=== PATIENT | male | born 1955 | race Caucasian/White ===

== ENCOUNTER 2018-07-26 05:49 | Outpatient (CLI) | payer BC ==
[~2018-07-26] VITALS: Ht 177.8 cm; Wt 90.7 kg
[2018-07-26] MEDS ORDERED: METF-397 PO (11:32)
[2018-07-26] MEDS ORDERED: ATOR20TA66 PO (11:32)
[2018-07-26] MEDS ORDERED: LISI40TA PO (11:32)
[2018-07-26] MEDS ORDERED: SITA100T12 PO (11:32)
[2018-07-26] MEDS ORDERED: AMLO10TA6 PO (11:32)
[2018-07-26] MEDS ORDERED: OMG1KC PO (11:32)
[2018-07-26] MEDS ORDERED: DIPH25TA31 PO (11:32)
== END 2018-07-26 12:06 | disposition home or self-care (01) ==
LOC: PREOP 05:49
PROVIDERS: ATTEND Specialist
DX: Z01.818 Encounter for other preprocedural examination (principal)

== ENCOUNTER 2018-07-27 05:48 | Day surgery (SDC) | payer BC ==
[~2018-07-27] VITALS: Ht 177.8 cm; Wt 90.7 kg
[~2018-07-27 05:48] MED LIST: AMLO10TA6 PO; ATOR20TA66 PO; DIPH25TA31 PO; LISI40TA PO; METF-397 PO; OMG1KC PO; SITA100T12 PO
[2018-07-27 06:15] VITALS: BP 129/83
[2018-07-27] MEDS ORDERED: LIDOCAINE PF 1% 2 ML AMP IR PRN (06:15)
[2018-07-27] MEDS ORDERED: MOXIFLOXACIN OPHTH SOLN 5 MG/ML 0.3 ML SYRINGE OP ONE (06:15)
[2018-07-27] MEDS ORDERED: POVIDONE (BETADINE) OPHTH SOLN 5% 30 ML OP ONE (06:15)
[2018-07-27] MEDS ORDERED: EPINEPHrine INJECTION 1 MG/ML AMP INJ ONE (06:15)
[2018-07-27] MEDS ORDERED: TIMOLOL MALEATE 0.5% 5 ML (TIMOPTIC) BTL OU PRN (06:15)
[2018-07-27] MEDS: TETRACAINE 0.5% OPHTH SOLN 4 ML BTL (SINGLE DOSE ONLY) OU PRN ×4 (06:23→06:39)
[2018-07-27] MEDS: PHENYLEPHRINE 10% OPHTH (NEO-SYN) 5 ML BTL OU SCH ×3 (06:30→06:39)
[2018-07-27] MEDS: CYCLOPENTOLATE 1% (CYCLOGYL) 2 ML DROPS OP SCH ×3 (06:30→06:39)
[2018-07-27] MEDS ORDERED: MIDAZOLAM 2 MG/2 ML (VERSED) VIAL ONE (06:57)
--- NOTE | 2018-07-27 07:04 | Ophthalmologist Pre-Op Note ---
Pre-Operative Progress Note H&P Reviewed The H&P was reviewed, patient examined and no changes noted. Date H&P Reviewed: Jul 27, 2018 Time H&P Reviewed: 07:04 Pre-Op Dx Cataract, Right Eye NI BAKER MD Jul 27, 2018 07:04
--- NOTE | 2018-07-27 07:30 | Ophthalmology Operative Report ---
Cataract removal/placement IOL PREOPERATIVE DIAGNOSIS: Cataract Right Eye POSTOPERATIVE DIAGNOSIS: Cataract Right Eye PROCEDURE: Cataract removal and placement of posterior chamber implant, right eye SURGEON: Adan Baker ANESTHESIA: Topical with sedation COMPLICATIONS: None ESTIMATED BLOOD LOSS: Minimal DESCRIPTION OF PROCEDURE: After proper informed consent was obtained, the patient, a 62 male, was taken to the Operating Room and the right eye was anesthetized with tetracaine. The right eye was then prepped and draped in the usual manner. A wire lid speculum was placed. A paracentesis was made at the left hand position. Preservative free lidocaine was injected into the anterior chamber followed by viscoelastic. A clear corneal incision was made in the temporal position. A capsulorrhexis was preformed and the central nuclear and cortical material were removed. The posterior capsule was polished and Chandra 9.5 [id number] IOL was placed into the capsular bag. The residual viscoelastic was aspirated and balanced saline solution was injected into the anterior chamber. Moxifloxacin was injected into the anterior chamber. The wound was checked and found to be water tight. The patient tolerated the procedure well without complications. ADAN BAKER MD Jul 27, 2018 07:30
[2018-07-27 07:39] VITALS: BP 113/79
--- NOTE | 2018-07-27 11:04 | Anesthesia-General Post-Op ---
MAC Patient Condition Mental Status/LOC: Same as Preop Cardiovascular: Satisfactory Nausea/Vomiting: Absent Respiratory: Satisfactory Pain: Controlled Complications: Absent Post Op Complications Complications None Follow Up Care/Instructions Patient Instructions None needed. Anesthesiology Discharge Order Discharge Order Patient is doing well, no complaints, stable vital signs, no apparent adverse anesthesia problems. No complications reported per nursing. JANE BAER CRNA Jul 27, 2018 11:04
== END 2018-07-27 07:39 | disposition home or self-care (01) ==
LOC: SDC 05:48
PROVIDERS: ATTEND Specialist
DX: H26.9 Unspecified cataract (principal); E11.36 Type 2 diabetes mellitus with diabetic cataract; I10 Essential (primary) hypertension; E78.00 Pure hypercholesterolemia, unspecified; E78.5 Hyperlipidemia, unspecified; F17.210 Nicotine dependence, cigarettes, uncomplicated; Z79.84 Long term (current) use of oral hypoglycemic drugs; Z79.899 Other long term (current) drug therapy
CPT/HCPCS: 82962

== ENCOUNTER 2018-08-10 06:50 | Outpatient (CLI) | payer BC | END 2018-08-10 14:04 | disposition home or self-care (01) | LOC: PREOP 06:50 | PROVIDERS: ATTEND Specialist | DX: Z01.818 Encounter for other preprocedural examination (principal) ==

== ENCOUNTER 2018-08-12 09:12 | Day surgery (SDC) | payer BC ==
[~2018-08-12] VITALS: Ht 177.8 cm; Wt 90.7 kg
[2018-08-12] MEDS: TETRACAINE 0.5% OPHTH SOLN 4 ML BTL (SINGLE DOSE ONLY) OU PRN ×4 (09:28→09:48)
[2018-08-12] MEDS ORDERED: LIDOCAINE PF 1% 2 ML AMP IR PRN (09:30)
[2018-08-12] MEDS ORDERED: MOXIFLOXACIN OPHTH SOLN 5 MG/ML 0.3 ML SYRINGE OP ONE (09:30)
[2018-08-12] MEDS ORDERED: acetaZOLAMIDE ER 500 MG CAP (DIAMOX SEQUELS) PO ONE (09:30)
[2018-08-12] MEDS ORDERED: POVIDONE (BETADINE) OPHTH SOLN 5% 30 ML OP ONE (09:30)
[2018-08-12] MEDS ORDERED: BSS 15 ML IR PRN (09:30)
[2018-08-12] MEDS ORDERED: TIMOLOL MALEATE 0.5% 5 ML (TIMOPTIC) BTL OU PRN (09:30)
[2018-08-12] MEDS ORDERED: EPINEPHrine INJECTION 1 MG/ML AMP INJ ONE (09:30)
[2018-08-12 09:31] VITALS: BP 116/73
--- NOTE | 2018-08-12 09:35 | Ophthalmologist Pre-Op Note ---
Pre-Operative Progress Note H&P Reviewed The H&P was reviewed, patient examined and no changes noted. Date H&P Reviewed: Aug 12, 2018 Time H&P Reviewed: 09:35 Pre-Op Dx Cataract, Left Eye NI BAKER MD Aug 12, 2018 09:35
[2018-08-12] MEDS: PHENYLEPHRINE 10% OPHTH (NEO-SYN) 5 ML BTL OU SCH ×3 (09:39→09:48)
[2018-08-12] MEDS: CYCLOPENTOLATE 1% (CYCLOGYL) 2 ML DROPS OP SCH ×3 (09:39→09:48)
[2018-08-12] MEDS ORDERED: MIDAZOLAM 2 MG/2 ML (VERSED) VIAL ONE (09:56)
--- NOTE | 2018-08-12 10:18 | Ophthalmology Operative Report ---
Cataract removal/placement IOL PREOPERATIVE DIAGNOSIS: Cataract Left Eye POSTOPERATIVE DIAGNOSIS: Cataract Left Eye PROCEDURE: Cataract removal and placement of posterior chamber implant, left eye SURGEON: Adan Baker ANESTHESIA: Topical with sedation COMPLICATIONS: None ESTIMATED BLOOD LOSS: Minimal DESCRIPTION OF PROCEDURE: After proper informed consent was obtained, the patient, a 63 male, was taken to the Operating Room and the left eye was anesthetized with tetracaine. The left eye was then prepped and draped in the usual manner. A wire lid speculum was placed. A paracentesis was made at the left hand position. Preservative free lidocaine was injected into the anterior chamber followed by viscoelastic. A clear corneal incision was made in the temporal position. A capsulorrhexis was preformed and the central nuclear and cortical material were removed. The posterior capsule was polished and an Chandra 9.5 AU00T0 IOL was placed into the capsular bag. The residual viscoelastic was aspirated and balanced saline solution was injected into the anterior chamber. Moxifloxacin was injected into the anterior chamber. The wound was checked and found to be water tight. The patient tolerated the procedure well without complications. ADAN BAKER MD Aug 12, 2018 10:18
[2018-08-12 10:28] VITALS: BP 116/92
== END 2018-08-12 09:28 | disposition home or self-care (01) ==
LOC: SDC 09:12
PROVIDERS: ATTEND Specialist
DX: H25.12 Age-related nuclear cataract, left eye (principal); E11.36 Type 2 diabetes mellitus with diabetic cataract; I10 Essential (primary) hypertension; F17.210 Nicotine dependence, cigarettes, uncomplicated; Z79.84 Long term (current) use of oral hypoglycemic drugs
CPT/HCPCS: 82962

== ENCOUNTER 2019-05-10 11:35 | Inpatient (IN) | payer BC ==
[~2019-05-10] VITALS: Ht 177.8 cm; Wt 92.1 kg
[~2019-05-10 11:35] MED LIST changes: -AMLO10TA6 PO; +AMLO10TA7 PO
[2019-05-10] MEDS ORDERED: NS IV 1000 ML 1,000 ML IV SCH ×3 (11:43→16:45)
--- NOTE | 2019-05-10 12:13 | ED General ---
General Chief Complaint: General Problems/Pain Stated Complaint: NAUSEA;MUSCLE PAIN;DEHYDRATION Nursing Triage Note: PT AMB TO RM 6 AFTER BEING SENT FROM URGENT CARE. PT STATES WOKE UP THIS MORNING FEELING DIZZY AND WEAK. WENT TO URGENT CARE THIS AM AND HAD ABNORMAL LABS. GIVEN 1L FLUIDS AT Nursing Sepsis Screen: No Definite Risk Source of Information: Patient Exam Limitations: No Limitations History of Present Illness Date Seen by Provider: May 10, 2019 Time Seen by Provider: 11:38 Initial Comments Here with report of weak and dizzy with report from [facility] urgent care that the patient was hypotensive with elevated creatinine and potassium. Also elevated total CK. The provider at urgent care reports that the patient was having shaking chills. This may have started after initiated IV fluids but he has had them persistently since. Does complain of some back and chest discomfort as well as cough. He has had decreased urination. He does work outside in the heat and thinks he may have got overheated yesterday. Denies fevers. Denies d ysuria but is having a hard time going to the bathroom. Denies diarrhea. Labs reviewed from urgent care. Timing/Duration: 4-6 Hours Severity: Moderate Associated Systoms: Cough; No Nausea/Vomiting, No Shortness of Air; Weakness Allergies and Home Medications Allergies Coded Allergies: No Known Drug Allergies (Unverified , 07/26/18) Home Medications Amlodipine Besylate 10 Mg Tablet, 10 MG PO DAILY, (Reported) Atorvastatin Calcium 20 Mg Tablet, 20 MG PO DAILY, (Reported) Diphenhydramine HCl 25 Mg Tablet, 25 MG PO DAILY, (Reported) Lisinopril 40 Mg Tablet, 40 MG PO DAILY, (Reported) Metformin HCl 500 Mg Tablet, 500 MG PO BID, (Reported) [place] 3 Polyunsat Fatty Acids 1,000 Mg Cap, 1,000 MG PO BID, (Reported) Sitagliptin Phosphate 100 Mg Tablet, 100 MG PO DAILY, (Reported) Patient Home Medication List Home Medication List Reviewed: Yes Review of Systems Review of Systems Constitutional: see HPI, chills; No fever; weakness EENTM: No nose congestion, No throat pain Respiratory: cough; No short of breath Cardiovascular: No edema, No palpitations Gastrointestinal: No abdominal pain, No diarrhea, No vomiting Genitourinary: decreased output; No dysuria Musculoskeletal: back pain, muscle pain Skin: No see HPI, No change in color Psychiatric/Neurological: No Symptoms Reported All Other Systems Reviewed Negative Unless Noted: Yes Past Lthwksf-Lllnkz-Fnulzt Hx Patient Social History Alcohol Use: Denies Use Recreational Drug Use: No Smoking Status: Current Everyday Smoker Type Used: Cigarettes Recent Foreign Travel: No Contact w/Someone Who Travel: No Recent Infectious Disease Expo: No Immunizations Up To Date Tetanus Booster (TDap): Unknown PED Vaccines UTD: Yes Past Medical History Surgeries: Yes Abdominal Respiratory: No Cardiac: Yes High Cholesterol, Hypertension Neurological: No Genitourinary: No Gastrointestinal: No Musculoskeletal: No Endocrine: Yes Diabetes, Non-Insulin dep HEENT: No Cancer: No Psychosocial: No Integumentary: No Family Medical History Reviewed Nursing Family Hx No Pertinent Family Hx Physical Exam-Suspected Sepsis Physical Exam Vital Signs Vital Signs - First Documented 05/10/19 11:42 Temp 97.6 Pulse 86 Resp 20 B/P (MAP) 122/75 (91) Pulse Ox 100 O2 Delivery Room Air Capillary Refill : Less Than 3 Seconds Blood Pressure Mean: 91 Height, Weight, BMI Height: 5'1.00" Weight: 203lbs. 0.0oz. 92.379939kr; BMI Method:Stated General Appearance: No Apparent Distress, WD/WN HEENT: PERRL/EOMI, Pharynx Normal Neck: Non Tender, Supple Respiratory: Lungs Clear, Normal Breath Sounds Cardiovascular: Regular Rate, Rhythm, No Murmur Gastrointestinal: Non Tender, Soft Back: Normal Inspection, No CVA Tenderness, No Vertebral Tenderness Extremity: Normal Range of Motion, Non Tender Neurologic/Psychiatric: Alert, Oriented x3 Skin: normal color, warm/dry Focused Exam Lactate Level 05/10/19 11:45: Lactic Acid Level 1.35 Lactic Acid Level Laboratory Tests Test 05/10/19 11:45 Lactic Acid Level 1.35 MMOL/L (0.50-2.00) Progress/Results/Core Measures Suspected Sepsis Recent Fever Within 48 Hours: No Infection Criteria Present: None New/Unexplained Altered Menta: No Sepsis Screen: No Definite Risk SIRS Temperature:97.6 Pulse: 86 Respiratory Rate: 20 Blood Pressure 122 /75 Mean: 91 05/10/19 11:45: Lactic Acid Level 1.35 Laboratory Tests 05/10/19 11:45: Creatinine 3.34H, INR Comment 0.9 Results/Orders Lab Results Laboratory Tests Test 05/10/19 11:45 05/10/19 12:50 Range/Units Prothrombin Time 12.2 12.2-14.7 SEC INR Comment 0.9 0.8-1.4 Activated Partial Thromboplast Time 29 24-35 SEC Sodium Level 138 135-145 MMOL/L Potassium Level 5.2 H 3.6-5.0 MMOL/L Chloride Level 101 98-107 MMOL/L Carbon Dioxide Level 23 21-32 MMOL/L Anion Gap 14 5-14 MMOL/L Blood Urea Nitrogen 49 H 7-18 MG/DL Creatinine 3.34 H 0.60-1.30 MG/DL Estimat Glomerular Filtration Rate 19 BUN/Creatinine Ratio 15 Glucose Level 112 H 70-105 MG/DL Lactic Acid Level 1.35 0.50-2.00 MMOL/L Calcium Level 10.3 H 8.5-10.1 MG/DL Total Creatine Kinase 448 H 30-200 U/L Troponin I < 0.028 <0.028 NG/ML Urine Color YELLOW Urine Clarity CLEAR Urine pH 5 5-9 Urine Specific [place] 1.020 1.016-1.022 Urine Protein 1+ H NEGATIVE Urine Glucose (UA) NEGATIVE NEGATIVE Urine Ketones NEGATIVE NEGATIVE Urine Nitrite NEGATIVE NEGATIVE Urine Bilirubin NEGATIVE NEGATIVE Urine Urobilinogen NORMAL NORMAL MG/DL Urine Leukocyte Esterase 1+ H NEGATIVE Urine RBC (Auto) NEGATIVE NEGATIVE Urine RBC NONE /HPF Urine WBC 5-10 H /HPF Urine Squamous Epithelial Cells RARE /HPF Urine Renal Epithelial Cells NONE /HPF Urine Crystals PRESENT H /LPF Urine Bacteria MODERATE H /HPF Urine Casts PRESENT /LPF Urine Hyaline Casts >50 H /LPF Urine Granular Casts 0-2 H /LPF Urine Mucus N /LPF Urine Culture Indicated YES My Orders Orders - MANDI BOYER MD Blood Culture (05/10/19 11:43) Sputum Culture (05/10/19 11:43) Urinalysis (05/10/19 11:43) Urine Culture (05/10/19 11:43) Protime With Inr (05/10/19 11:43) Partial Thromboplastin Time (05/10/19 11:43) Chest 1 View, Ap/Pa Only (05/10/19 11:43) Ed Iv/Invasive Line Start (05/10/19 11:43) Ed Iv/Invasive Line Start (05/10/19 11:43) Vital Signs Adult Sepsis Patie Q15M (05/10/19 11:43) O2 (05/10/19 11:43) Remove Rings In Anticipation O (05/10/19 11:43) Lactic Acid Analyzer (05/10/19 11:43) Ns Iv 1000 Ml (Sodium Chloride 0.9%) (05/10/19 11:43) Basic Metabolic Panel (05/10/19 11:50) Creatine Kinase (05/10/19 11:50) Troponin I (05/10/19 12:13) Ceftriaxone For Iv Use (Rocephin For I (05/10/19 14:15) Ns Iv 1000 Ml (Sodium Chloride 0.9%) (05/10/19 14:22) Medications Given in ED Current Medications Medications Dose Ordered Sig/Zora Route Start Time Stop Time Status Last Admin Dose Admin Ceftriaxone Sodium 1000 mg/ Sterile Water 10 ml @ 200 mls/hr ONCE ONCE IV 05/10/19 14:15 05/10/19 14:17 DC 05/10/19 14:30 200 MLS/HR Vital Signs/I&O 05/10/19 11:42 Temp 97.6 Pulse 86 Resp 20 B/P (MAP) 122/75 (91) Pulse Ox 100 O2 Delivery Room Air Capillary Refill : Less Than 3 Seconds Blood Pressure Mean: 91 Progress Note : Progress Note Seen and evaluated. IV, labs, UA and chest x-ray ordered. We will use CMP and CBC done earlier today from outpatient clinic. I will go ahead and repeat BMP due to elevated creatinine and hyperkalemia. Repeat normal saline 1 L bolus. Monitor patient. 1506: Labs complete. Does have findings concerning for urinary tract infection and Rocephin 1 g IV was initiated. Blood pressure has improved to greater than 100 systolic after second liter of fluid (1 L at urgent care and 1 L here). He has eaten without difficulty and is overall feeling better. Does have the significant renal dysfunction and this will require admission. I discussed this with the patient who wanted me to talk with his . This is been done and they agree to admission. I discussed the case with Dr. Blackmon and she accepts patient for admission, inpatient status. We'll continue hydration and Rocephin daily. Patient is on meds for for diabetes so we will hold that given his renal dysfunction and initiate sliding scale insulin. Mag lab results for CBC: WBC 11.3, hemoglobin 14.4, platelets 342 with absolute neutrophil count of 7.59. Chemistry results: Sodium 135, potassium 5.7, chloride 97, CO2 26, glucose 139, creatinine 3.4, BUN 50, calcium 10.6, alkaline phosphatase 50, AST 24, ALT 31, T bili 0.9, CPK 443. Estimated GFR 19. Departure Communication (Admissions) Time/Spoke to Admitting Phy: 15:06 Impression Primary Impression: Acute renal failure Qualified Codes: N17.9 - Acute kidney failure, unspecified Additional Impression: Urinary tract infection Qualified Codes: N30.00 - Acute cystitis without hematuria Disposition: ADMITTED INPATIENT Condition: Stable Admissions Decision to Admit Reason: Admit from ER (General) Decision to Admit/Date: May 10, 2019 Time/Decision to Admit Time: 15:06 Departure-Patient Inst. Referrals: NO,LOCAL PHYSICIAN (PCP/Family) Primary Care Physician MANDI BOYER MD May 10, 2019 12:13
--- NOTE | 2019-05-10 12:18 | Diagnostic Imaging Report ---
INDICATION: Near syncope. TIME OF EXAM: 12:06 p.m. COMPARISON: No prior studies are available for comparison. FINDINGS: The heart size is normal. The pulmonary vascularity is unremarkable. The lungs are clear. No infiltrate, effusion or pneumothorax is detected. IMPRESSION: No acute cardiopulmonary process is detected. Dictated by: Dictated on workstation # [id number]
[2019-05-10 12:20] LABS: INR 0.9 (0.8-1.4); PROTHROMBIN TIME PATIENT 12.2 SEC (12.2-14.7)
[2019-05-10 12:24] LABS: CALCIUM 10.3 MG/DL (8.5-10.1); CREATININE SERUM 3.34 MG/DL (0.60-1.30); POTASSIUM 5.2 MMOL/L (3.6-5.0)
[2019-05-10 12:57] LABS: BILIRUBIN,URINE NEGATIVE (NEGATIVE); CLARITY,URINE CLEAR; COLOR,URINE YELLOW; GLUCOSE, URINE (UA) NEGATIVE (NEGATIVE); KETONES,URINE NEGATIVE (NEGATIVE); LEUKOCYTE ESTERASE ,URINE 1+ (NEGATIVE); NITRITE,URINE NEGATIVE (NEGATIVE); PH,URINE 5 (5-9); PROTEIN,URINE 1+ (NEGATIVE); UROBILINOGEN,URINE NORMAL (NORMAL)
[2019-05-10 13:30] LABS: BACTERIA,URINE MODERATE /HPF; GRANULAR CASTS,URINE 0-2 /LPF; HYALINE CASTS, URINE >50 /LPF; SQUAMOUS EPITHELIAL CELL,UR RARE /HPF
[2019-05-10] MEDS ORDERED: cefTRIAXone FOR IV USE 1,000 MG in WATER (STERILE) FOR INJECTION 10 ML IV ONE (14:15)
--- NOTE | 2019-05-10 16:00 | NUR ---
HOANG SIMS admitted to room 405-1, with an admitting diagnosis of UTI AND ARF, on 05/10/19 from ED via W/C, accompanied by FAMILY AND ED STAFF. HOANG SIMS introduced to surroundings, call light, bed controls, phone, TV, temperature control, lights, meal times, smoking policy, visitor policy, side rail policy, bathrooms and showers. Patient Rights given to patient in the handbook. HOANG SIMS verbalizes understanding that [facility] is not responsible for the loss or damage to any personal effects or valuables that are kept in the patients possession during their hospitalization.
[2019-05-10 16:29] VITALS: BP 97/61
[2019-05-10] MEDS ORDERED: CATHETER FLUSH 10 ML SYR IV PRN (16:45)
[2019-05-10 20:29] VITALS: BP 107/61
[2019-05-10] MEDS ORDERED: CALCIUM CARBONATE 500 MG (TUMS) TAB.CHEW PO PRN (20:45)
[2019-05-10] MEDS ORDERED: ACETAMINOPHEN 500 MG TAB (TYLENOL) PO PRN (20:45)
[2019-05-10] MEDS ORDERED: fentaNYL INJECTION 100 MCG/2 ML AMP IVP PRN (20:45)
[2019-05-10] MEDS ORDERED: ONDANSETRON 4 MG (ZOFRAN) ORAL DISSOLVE TAB PO PRN (20:45)
[2019-05-10] MEDS ORDERED: diphenhydrAMINE 25 MG TAB (BENADRYL) PO PRN (20:45)
[2019-05-10] MEDS ORDERED: DOCUSATE SODIUM 100 MG (COLACE) CAP PO PRN (20:45)
[2019-05-10] MEDS ORDERED: HYDROcodone/APAP 5 MG/325 MG (LORTAB) TAB PO PRN (20:45)
[2019-05-10] MEDS ORDERED: MELATONIN 3 MG TABLET PO PRN (20:45)
[2019-05-10] MEDS ORDERED: LOPERAMIDE 2 MG (IMODIUM) TABLET PO PRN (20:45)
[2019-05-10] MEDS ORDERED: ALPRAZolam 0.25 MG (XANAX) TAB PO PRN (20:45)
[2019-05-10] MEDS ORDERED: ONDANSETRON 4 MG/2 ML (SDV) Z0FRAN IVP PRN (20:45)
[2019-05-10] MEDS: SENNA W/DOCUSATE (SENOKOT S) TABLET PO SCH (21:00)
[2019-05-10] MEDS: inSUlin ASPART (NovoLOG) 1 UNIT/0.01 ML (CHARGE PER UNIT) SC SCH (21:38)
[2019-05-11] VITALS: BP 110/66
[2019-05-11 04:00] VITALS: BP 114/70
[2019-05-11] MEDS: inSUlin ASPART (NovoLOG) 1 UNIT/0.01 ML (CHARGE PER UNIT) SC SCH (05:44)
[2019-05-11 06:11] LABS: BASOPHILS % (AUTO) 1 % (0-10); EOSINOPHILS # (AUTO) 0.2 10^3/uL (0.0-0.3); EOSINOPHILS % (AUTO) 3 % (0-10); HEMATOCRIT 35 % (40-54); HEMOGLOBIN 11.5 G/DL (13.3-17.7); LYMPHOCYTES # (AUTO) 1.6 X 10^3 (1.0-4.0); LYMPHOCYTES % (AUTO) 28 % (12-44); MEAN CORPUSCULAR HEMOGLOBIN 30 PG (25-34); MEAN CORPUSCULAR HGB CONC 33 G/DL (32-36); MEAN CORPUSCULAR VOLUME 91 FL (80-99); MEAN PLATELET VOLUME 9.8 FL (7.4-10.4); MONOCYTES # (AUTO) 0.7 X 10^3 (0.0-1.0); MONOCYTES % (AUTO) 12 % (0-12); NEUTROPHILS # (AUTO) 3.3 X 10^3 (1.8-7.8); NEUTROPHILS % (AUTO) 57 % (42-75); PLATELET COUNT 249 10^3/uL (130-400); RED CELL DISTRIBUTION WIDTH 13.2 % (10.0-14.5); WHITE BLOOD COUNT 5.7 10^3/uL (4.3-11.0)
[2019-05-11 06:27] LABS: ALANINE AMINOTRANSFERASE 24 U/L (0-55); ALBUMIN 3.7 GM/DL (3.2-4.5); ALKALINE PHOSPHATASE 51 U/L (40-136); BILIRUBIN,TOTAL 0.4 MG/DL (0.1-1.0); BUN/CREATININE RATIO 35; CALCIUM 8.8 MG/DL (8.5-10.1); CARBON DIOXIDE 22 MMOL/L (21-32); CHLORIDE 106 MMOL/L (98-107); CREATININE SERUM 1.14 MG/DL (0.60-1.30); GFR ESTIMATED > 60; GLUCOSE 121 MG/DL (70-105); SODIUM 135 MMOL/L (135-145)
[2019-05-11 08:00] VITALS: BP 112/70
--- NOTE | 2019-05-11 08:34 | NUR ---
SPOKE WITH THE PATIENT ABOUT HIS MEDICATIONS. WE WENT OVER THE EXT MED HX AND HE VERIFIED HOW HE TAKES THEM. HE HAS MOST RECENTLY FILLED METFORMIN 500MG BUT EARLIER IN APRIL HE FILLED THE 1000MG. HE STATES HE TAKES 500MG BID, HE CUTS THE 1000MG IN HALF TO USE UP THAT SUPPLY. HE TAKES 2 FISH OIL AM AND A GENERIC BENADRYL DAILY OTC.
[2019-05-11] MEDS: SENNA W/DOCUSATE (SENOKOT S) TABLET PO SCH (09:30)
--- NOTE | 2019-05-11 09:40 | Short Stay Summary-Hospitalist ---
History of Present Illness HPI/Chief Complaint CC: Heat exposure with ARF HPI: This is a 63[address]WM pt of Dr. 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 I did residence counselor him to drink Gatorade and water half and half and make sure he prevents heat exposure in the future and I did hold some of his medication including Metformin and Lisinopril until he sees Dr. Blunt in one week. He otherwise has no new complaints and is ready for DC. He is eating and drinking well. Source: patient Exam Limitations: no limitations Date Seen 05/11/19 Time Seen by a Provider: 09:30 Attending Physician Lexi Blackmon DO PCP No,Local Physician Referring Physician Date of Admission May 10, 2019 at 15:06 Home Medications & Allergies Home Medications Reviewed patient Home Medication Reconciliation performed by pharmacy medication reconciliations sales service technician and/or nursing. Patients Allergies have been reviewed. Allergies Allergies Coded Allergies No Known Drug Allergies (Unverified05/10/19) Past Bicamvw-Uklwpn-Tbdxbr Hx Past Med/Social Hx: Reviewed Nursing Past Med/Soc Hx, Reviewed and Corrections made Patient Social History Marrital Status: Employed/Student: employed Alcohol Use: Denies Use Recreational Drug Use: No Smoking Status: Current Everyday Smoker Type Used: Cigarettes Recent Foreign Travel: No Contact w/other who traveled: No Recent Infectious Disease Expo: No Immunizations Up To Date Tetanus Booster (TDap): Unknown Pediatric: Yes Past Medical History Surgeries: Abdominal Cardiac: High Cholesterol, Hypertension Endocrine: Diabetes, Non-Insulin dep Family History Reviewed Nursing Family Hx Asthma G8 BROTHER, Onset:Unknown G8 BROTHER, Onset:Unknown Congenital heart disease 19 MOTHER, Onset: (VENTRICULAR CONGENITAL HEART DEFECT. VENTRICLES DID NOT CLOSE ALL THE WAY.) Diabetes mellitus G8 BROTHER, Onset:Unknown G8 BROTHER, Onset:Unknown FHx: COPD (chronic obstructive pulmonary disease) 19 FATHER, Onset:Unknown No Pertinent Family Hx Review of Systems Constitutional: see HPI, weakness EENTM: no symptoms reported Respiratory: no symptoms reported Gastrointestinal: no symptoms reported Genitourinary: decreased output Musculoskeletal: no symptoms reported Skin: no symptoms reported Psychiatric/Neurological: No Symptoms Reported All Other Systems Reviewed Negative Unless Noted: Yes Physical Exam Physical Exam Vital Signs Vital Signs - First Documented 05/10/19 11:42 Temp 97.6 Pulse 86 Resp 20 B/P (MAP) 122/75 (91) Pulse Ox 100 O2 Delivery Room Air Capillary Refill : Less Than 3 Seconds Height, Weight, BMI Height: 5'10.00" Weight: 203lbs. 0.0oz. 92.224176je; 29.1 BMI Method:Stated General Appearance: No Apparent Distress, WD/WN Eyes: Bilateral Eye Normal Inspection, Bilateral Eye PERRL HEENT: PERRL/EOMI, Pharynx Normal Neck: Non Tender, Supple Respiratory: Lungs Clear, Normal Breath Sounds Cardiovascular: Regular Rate, Rhythm, No Murmur Gastrointestinal: Non Tender, Soft Back: Normal Inspection, No CVA Tenderness, No Vertebral Tenderness Extremity: Normal Range of Motion, Non Tender Neurologic/Psychiatric: Alert, Oriented x3 Skin: Normal Color, Warm/Dry Lymphatic: No Adenopathy Results Results/Procedures Labs Laboratory Tests 05/10/19 11:45 05/11/19 05:15 Patient resulted labs reviewed. Short Stay Diagnosis Discharge Diagnosis-Short Stay Admission Diagnosis Assessment: ARF Heat exposure HTN DM Final Discharge Diagnosis Assessment: ARF Heat exposure HTN DM Conclusion Plan Plan: DC home Restart most meds Hold ARB and Metformin Diagnosis/Problems Diagnosis/Problems (1) Acute renal failure Status: Acute Qualifiers: Qualified Codes: N17.9 - Acute kidney failure, unspecified (2) Heat exposure Status: Acute Qualifiers: Qualified Codes: T67.9XXA - Effect of heat and light, unspecified, initial encounter (3) Hypertension Status: Chronic Qualifiers: Qualified Codes: I10 - Essential (primary) hypertension (4) Diabetes mellitus Status: Chronic Qualifiers: Qualified Codes: E11.9 - Type 2 diabetes mellitus without complications Clinical Quality Measures DVT/VTE Risk/Contraindication: Risk Factor Score Per Nursin RFS Level Per Nursing on Admit: 4+=Very High LEXI BLACKMON DO May 11, 2019 09:40
[2019-05-11 12:00] VITALS: BP 117/62
[2019-05-11 13:28] VITALS: BP 117/62
== END 2019-05-11 13:28 | disposition home or self-care (01) | DRG 683 ==
LOC: EDUNIT# 11:35 → ER 11:36 → 4TH 15:06
PROVIDERS: ADMIT Internal Medicine; ATTEND Internal Medicine
DX: N17.9 Acute kidney failure, unspecified (principal); M62.82 Rhabdomyolysis; T67.9XXA Effect of heat and light, unspecified, initial encounter; N30.00 Acute cystitis without hematuria; E11.9 Type 2 diabetes mellitus without complications; I10 Essential (primary) hypertension; E78.00 Pure hypercholesterolemia, unspecified; F17.210 Nicotine dependence, cigarettes, uncomplicated; Z79.84 Long term (current) use of oral hypoglycemic drugs
CPT/HCPCS: 36415; 71045; 80048; 80053; 81000; 82550; 82962; 83605; 84484; 85025; 85610; 85730; 87040; 87088; 96361; 96365

== ENCOUNTER 2020-09-30 05:33 | Outpatient (RCR) | payer BC ==
[~2020-09-30] VITALS: Ht 177.8 cm; Wt 95.0 kg
[~2020-09-30 05:33] MED LIST changes: +AMLO-251 PO; -AMLO10TA7 PO; +LISI10TA2 PO
== END 2020-09-30 10:43 | disposition home or self-care (01) ==
LOC: PREOP 05:33
PROVIDERS: ATTEND Surgery
DX: Z01.812 Encounter for preprocedural laboratory examination (principal); K42.9 Umbilical hernia without obstruction or gangrene; Z20.828 Contact with and (suspected) exposure to other viral communicable diseases
CPT/HCPCS: 87635

== ENCOUNTER 2020-10-02 06:56 | Day surgery (SDC) | payer BC, MEDICARE ==
[2020-10-02] VITALS (11 sets, daily range): BP systolic 126–143; BP diastolic 78–88
[~2020-10-02] VITALS: Ht 177.8 cm; Wt 95.0 kg
--- NOTE | 2020-10-02 08:06 | Progress Note-Pre Operative ---
Pre-Operative Progress Note H&P Reviewed The H&P was reviewed, patient examined and no changes noted. Time Seen by Provider: 08:01 Date H&P Reviewed: Oct 02, 2020 Time H&P Reviewed: 08:02 Pre-Operative Diagnosis: Incarcerated Umbilical hernia MONTRELL KAY DO Oct 02, 2020 08:06
[2020-10-02 08:10] LABS: BASOPHILS # (AUTO) 0.1 10^3/uL (0.0-0.1); BASOPHILS % (AUTO) 1 % (0-10); EOSINOPHILS # (AUTO) 0.1 10^3/uL (0.0-0.3); EOSINOPHILS % (AUTO) 2 % (0-10); HEMATOCRIT 41 % (40-54); HEMOGLOBIN 13.7 g/dL (13.3-17.7); LYMPHOCYTES # (AUTO) 1.6 10^3/uL (1.0-4.0); LYMPHOCYTES % (AUTO) 20 % (12-44); MEAN CORPUSCULAR HEMOGLOBIN 29 pg (25-34); MEAN CORPUSCULAR HGB CONC 33 g/dL (32-36); MEAN CORPUSCULAR VOLUME 88 fL (80-99); MEAN PLATELET VOLUME 9.9 fL (9.0-12.2); MONOCYTES # (AUTO) 0.8 10^3/uL (0.0-1.0); MONOCYTES % (AUTO) 9 % (0-12); NEUTROPHILS # (AUTO) 5.7 10^3/uL (1.8-7.8); NEUTROPHILS % (AUTO) 69 % (42-75); PLATELET COUNT 316 10^3/uL (130-400); WHITE BLOOD COUNT 8.3 10^3/uL (4.3-11.0)
[2020-10-02] MEDS ORDERED: ceFAZolin 2 GM IV Premixed 50 ML IV ONE (08:15)
[2020-10-02] MEDS: LACTATED RINGERS 1,000 ML IV PRN ×2 (08:19→10:00)
[2020-10-02] MEDS ORDERED: ONDANSETRON 4 MG/2 ML (SDV) Z0FRAN ONE ×2 (08:43→09:03)
[2020-10-02] MEDS ORDERED: ROCURONIUM 10 MG/ML 5 ML SYRINGE IV ONE (08:43)
[2020-10-02] MEDS ORDERED: MIDAZOLAM 2 MG/2 ML (VERSED) VIAL ONE (08:43)
[2020-10-02] MEDS ORDERED: LIDOCAINE PF 2% 5 ML (XYLOCAINE) VIAL ONE (08:43)
[2020-10-02] MEDS ORDERED: proPOfol 200 MG/20 ML (DIPRIVAN) VIAL IV ONE (08:43)
[2020-10-02] MEDS ORDERED: fentaNYL INJECTION 100 MCG/2 ML AMP ONE ×2 (08:43→10:21)
[2020-10-02] MEDS ORDERED: SEVOFLURANE (ULTANE) 15 ML INHAL SOLN ONE ×3 (08:50→10:15)
[2020-10-02] MEDS ORDERED: LIDOCAINE/EPI 1%-1:100,000 (XYLOCAINE) 20ML ONE (08:53)
[2020-10-02] MEDS ORDERED: PROMETHAZINE INJ 25 MG/ML (PHENERGAN) AMP IVP ONE (09:00)
[2020-10-02] MEDS ORDERED: FAMOTIDINE 20MG/2ML IV (PEPCID) IV ONE (09:00)
[2020-10-02] MEDS ORDERED: HYDROmorphone 2 MG/ML VIAL (DILAUDID) IV ONE ×2 (09:00→10:45)
[2020-10-02] MEDS ORDERED: ONDANSETRON 4 MG/2 ML (SDV) Z0FRAN IV ONE (09:00)
[2020-10-02] MEDS ORDERED: SCOPOLAMINE 1.5 MG (TRANSDERM-SCOP) PATCH TOP ONE (09:00)
[2020-10-02] MEDS ORDERED: fentaNYL INJECTION 100 MCG/2 ML AMP IVP ONE (09:00)
[2020-10-02] MEDS ORDERED: MEPERIDINE (DEMEROL) INJ 50 MG/ML IVP ONE (09:00)
[2020-10-02] MEDS ORDERED: ONDANSETRON 4 MG/2 ML (SDV) Z0FRAN IVP PRN ×2 (09:00→10:45)
[2020-10-02] MEDS ORDERED: morphine INJ 10 MG/ML 1ML (SYR OR VIAL) IVP ONE ×2 (09:00→10:45)
[2020-10-02] MEDS ORDERED: SCOPOLAMINE 1.5 MG (TRANSDERM-SCOP) PATCH ONE (09:03)
[2020-10-02] MEDS ORDERED: FAMOTIDINE 20MG/2ML IV (PEPCID) ONE (09:04)
[2020-10-02] MEDS ORDERED: GLYCOPYRROLATE 0.2 MG/ML (ROBINUL) 2 ML VIAL ONE (09:07)
[2020-10-02] MEDS ORDERED: NEOSTIGMINE 3 MG/3 ML VIAL ONE (09:07)
[2020-10-02] MEDS ORDERED: HYDR-4226 PO (10:35)
--- NOTE | 2020-10-02 10:35 | Progress Note-Post Operative ---
Post-Operative Progess Note Surgeon (s)/Hearing Aid Specialist (s) Surgeon MONTRELL KAY DO Hearing Aid Specialist: ISABEL Meyer Pre-Operative Diagnosis Incarcerated Umbilical hernia Post-Operative Diagnosis infected mesh intraperitoneal abscess Umbilical hernia Procedure & Operative Findings Date of Procedure 10/02/20 Procedure Performed/Findings Removal of infected mesh Drainage of intraperitoneal abscess Anesthesia Type GET Estimated Blood Loss Estimated blood loss (mL): scant Specimens/Packing Specimens Removed infected/inflamed tissue mesh culture MONTRELL KAY DO Oct 02, 2020 10:34
--- NOTE | 2020-10-02 10:37 | Discharge Inst-Surgical ---
Discharge Inst-Surgical Depart Medication/Instructions New, Converted or Re-Newed RX: RX Given to Pt/Family Patient Instructions Follow up Appt: Make appointment for 1 week. [phone] Instructions: No lifting greater than 20 pounds. No strenuous activity. May shower in 24 hours, no tub bath or soaking. Use incentive spirometer at home as directed. No Smoking Skin/Wound Care: May remove bandages in am. You need to leave the Dermabond on incision it will fall off on it's own. Symptoms to Report: Appetite Changes, Extremity Discoloration, Numbness/Tingling, Swelling Increased, Bleeding Excessive, Eyesight Changes, Pain Increased, Urine Color Change, Constipation(Persistent), Fever over 101 degree F, Pain/Pressure in chest, Urinating Difficulty, Cough Up/Vomit Blood, Heart Beat Irreg/Pounding, Pain/Pressure in jaw, Cramps in feet or legs, Lightheadedness, Pain/Pressure in shoulder, Diarrhea(Persistent), Memory Changes Suddenly, Questions/Concerns, Weight gain consecutive days, Dizziness/Fainting, Nausea/Vomiting, Shortness of Breath, Weight gain over 2 pounds If questions or concerns contact your physician Or seek help at emergency department. Activity Activity as Tolerated: Yes Activity Instructions: Avoid Stress to Incision Driving Instructions: No Driving/Refer to Dr. Duque Discharge Diet: No Restrictions Diet After 24 Hours: Clear Liquid if Nauseous If Any Problems/Questions/Issu: Contact Your Physician, Go to Emergency Room Skin/Wound Care Infection Signs and Symptoms: Increased Redness, Foul Odor of Wound, Increased Drainage, Skin Itchy or Has a Rash, Increased Swelling, Temperature Above 101 F Wound Care Comment: heating pad to shoulder or neck tonight for pain Bathing Instructions: Shower Stitches/Jade/Dermabond Dis: Dermabond Ice Pack: Ice On and Off Site (at incisions as needed for pain) MONTRELL KAY DO Oct 02, 2020 10:37
--- NOTE | 2020-10-02 10:45 | Anesthesia-General Post-Op ---
General Patient Condition Mental Status/LOC: Same as Preop Cardiovascular: Satisfactory Nausea/Vomiting: Absent Respiratory: Satisfactory Pain: Controlled Complications: Absent Post Op Complications Complications None Follow Up Care/Instructions Patient Instructions None needed. Anesthesia/Patient Condition Patient Condition Patient is doing well, no complaints, stable vital signs, no apparent adverse anesthesia problems. No complications reported per nursing. DELIA TA CRNA Oct 02, 2020 10:45
[2020-10-02] MEDS ORDERED: HYDROcodone/APAP 5 MG/325 MG (LORTAB) TAB ONE (11:40)
[2020-10-02] MEDS ORDERED: HYDROcodone/APAP 5 MG/325 MG (LORTAB) TAB PO ONE ×2 (12:00→12:30)
--- NOTE | 2020-10-02 21:44 | OPERATIVE REPORT ---
DATE OF SERVICE: 10/02/2020 PREOPERATIVE DIAGNOSIS: Incarcerated umbilical hernia. POSTOPERATIVE DIAGNOSES: 1. Infected mesh. 2. Intraperitoneal abscess. 3. Umbilical hernia. PROCEDURES: 1. Removal of infected mesh. 2. Drainage of intraperitoneal abscess. SURGEON: Billy Gonzales DO SENIOR VICE PRESIDENT & GENERAL COUNSEL: Tonio Levy MS3. ANESTHESIA: General endotracheal tube. SPECIMEN: 1. Inflammatory mass. 2. Infected mesh. 3. Culture of the perineum. BLOOD LOSS: Scant. FLUIDS: Per anesthesia. POSTOPERATIVE CONDITION: Stable. INDICATION FOR PROCEDURE: The patient is a 65-year-old male who had an incarcerated umbilical hernia. Had pain and bulging and mass at the umbilicus. He had a history of previous umbilical hernia repair with mesh. FINDINGS: The patient actually had an infected mesh with an intraperitoneal abscess and also had an umbilical hernia. PROCEDURE NOTE: After informed consent was obtained, the patient was brought to the operating room, placed on the operating table in supine position, sterilely prepped and draped in normal fashion. Local lidocaine was used to infiltrate the skin in the left upper quadrant just below the ribs and then made an incision with #11 blade, carried down through the skin into subcutaneous tissue, then deepened down to subcutaneous tissue with Bovie electrocautery down to the fascia. Fascia was incised with Bovie electrocautery, bluntly spread the muscle apart, went through the posterior fascia and then spread more muscle and bluntly entered the abdomen, placed a swept finger around, placed a limited trocar port under direct visualization. Created pneumoperitoneum. Upon entering, noted a large bulge in the midline right at the umbilicus with what looked like omentum stuck to it, took a picture of this, placed 2 more ports, 5 mm ports, one in left lower quadrant, one in the right mid abdomen. Using local lidocaine, 11 blade for stab incision and Versa-step system, all done under direct visualization. Able to carefully sweep the omentum off, it was just stuck up secondary to an inflammatory change and then we saw what looked like a large lump unsure what this was. So, elected to start going through this. When I was going through the fat and tissue, got a little bit of purulence, suctioned this up and then continued taking this inflammatory tissue off and found that this was inflammatory mass and could see infected mesh just above this. Then able to grasp this mesh, tried using Bovie electrocautery and then taking this down. Once I took this down, took a picture of this area, could see an umbilical hernia. There was lot of necrotic tissue in here. This was copiously irrigated with normal saline. Carefully debrided with Bovie electrocautery as well as blunt dissection with a suction house supervisor, made sure to completely drain this intraperitoneal abscess, then placed the infected mesh and then inflammatory tissue into a bag, pulled this through the left upper quadrant incision. Placed the port back into the abdomen. Also took a small piece of the peritoneum to take for culture. At this point, copiously irrigated some more. Obtained hemostasis. Then I elected to break, scrub and went out and spoke to the . Talked to her about possibly putting a Phasix mesh, which might be better in this area of contamination and infection, but I also gave her the option of doing two-step procedure. Basically, letting this heal and then going back to repair the hernia with mesh. I felt that if we placed the mesh now there would be a 30% to 40% chance of failure and possibly even higher of it getting re-infected. She thought her would want to not place mesh and risk second surgery knowing that he probably will need a second surgery, but he may not. At this point, went back to the operating room, checked again to make sure there was no bleeding. At this point, then removed all ports under direct visualization, allowed pneumoperitoneum to escape. Closed the left upper quadrant incision, closing the posterior fascia with 3-0 Vicryl [id number] suture, then closed the anterior fascia with 0 Vicryl [id number] suture. Copiously irrigated all incisions with normal saline, closing the 2 small 5 mm incisions with a single interrupted 4-0 undyed Monocryl subcuticular stitch. We closed the left upper quadrant incision with 3 interrupted 4-0 undyed Monocryl subcuticular stitches. Area was cleaned and dried. Dermabond placed as well as Band-Aids. The patient tolerated the procedure and transferred to recovery room in stable condition. Sponge, instrument and needle count correct at the end of the case. Job ID: [id number] DocumentID: [id number] Dictated Date: 10/02/2020 13:49:04 Aerial Lineman Date: 10/02/2020 21:43:25 Dictated By: DO KATRIN WHITE
== END 2020-10-02 13:50 | disposition home or self-care (01) ==
LOC: SDC 06:56
PROVIDERS: ATTEND Surgery
DX: T85.79XA Infection and inflammatory reaction due to other internal prosthetic devices, implants and grafts, initial encounter (principal); K65.1 Peritoneal abscess; K42.0 Umbilical hernia with obstruction, without gangrene; I10 Essential (primary) hypertension; E11.9 Type 2 diabetes mellitus without complications; E66.9 Obesity, unspecified; Z68.30 Body mass index [BMI] 30.0-30.9, adult; F17.210 Nicotine dependence, cigarettes, uncomplicated; Z79.84 Long term (current) use of oral hypoglycemic drugs; Z79.899 Other long term (current) drug therapy
CPT/HCPCS: 36415; 82962; 85025; 87070; 87075; 87077; 87081; 87184; 87186; 87205; 88302